=== PATIENT | male | born 1970 | race Caucasian/White ===

== ENCOUNTER 2016-10-02 14:13 | Inpatient (IN) | payer OTHER ==
[2016-10-02 15:04] VITALS: BMI 24.0
--- NOTE | 2016-10-02 17:10 | HP ---
COWS - Scale Resting Pulse: 1= [place] 81-100 Sweatin= Chills/Flushing Restless Observation: 1= Difficult to Sit Still Pupil Size: 0= Normal to Room Light Bone or Joint Aches: 2= Severe Diffuse Aches Runny Nose/ Eye Tearin= Runny Nose/Eyes GI Upset > 30mins: 2= Nausea/Diarrhea Tremor Observation: 2= Slight Tremor Visible Yawning Observation: 1= 1-2x During Session Anxiety or Irritability: 2=Irritable/Anxious Goose Flesh Skin: 0=Smooth Skin COWS Score: 14 CIWA Score - CIWA Score Nausea/Vomitin-Mild Nausea/No Vomiting Muscle Tremors: 4-Moderate,w/Arms Extend Anxiety: 4-Mod. Anxious/Guarded Agitation: 4-Moderately Restless Paroxysmal Sweats: 1-Minimal Palms Moist Orientation: 1-Uncertain about Date Tacttile Disturbances: 0-None Auditory Disturbances: 0-None Visual Disturbances: 0-None Headache: 0-None Present CIWA-Ar Total Score: 15 Admission ROS S - HPI Chief Complaint: WITHDRAWAL SX Allergies/Adverse Reactions: Allergies Allergy/AdvReac Type Severity Reaction Status Date / Time No Known Allergies Allergy Verified 10/02/16 17:04 History of Present Illness: 46 YEARS OLD MALE WITH LONG HISTORY OF OPIATE NICOTINE DEPENDENCE, HYPERTENSION HIV DENIES MENTAL ILLNESS IS ADMITTED TO DETOX Exam Limitations: No Limitations - Ebola screening Have you traveled outside of the country in the last 21 days: No Have you had contact with anyone from an Ebola affected area: No Have you been sick,other than usual withdrawal symptoms: No Do you have a fever: No - Review of Systems Constitutional: Chills, Changes in sleep, Unintentional Wgt. Loss EENT: reports: No Symptoms Reported Respiratory: reports: Cough Cardiac: reports: Palpitations GI: reports: Diarrhea, Nausea, Poor Appetite, Poor Fluid Intake, Indigestion, Abdominal cramping : reports: No Symptoms Reported Musculoskeletal: reports: Back Pain, Joint Pain, Muscle Pain, Neck Pain Integumentary: reports: Change in Color (RIGHT FOR ARM IV OPIATE) Neuro: reports: Tremors Endocrine: reports: No Symptoms Reported Hematology: reports: No Symptoms Reported Psychiatric: reports: Judgement Intact, Mood/Affect Appropiate Other Systems: Reviewed and Negative Patient History - Patient Medical History Hx Anemia: No Hx Asthma: No Hx Chronic Obstructive Pulmonary Disease (COPD): No Hx Cancer: No Hx Cardiac Disorders: No Hx Congestive Heart Failure: No Hx Hypertension: Yes (non-compliant) Hx Hypercholesterolemia: No Hx Pacemaker: No HX Cerebrovascular Accident: No Hx Seizures: No Hx Dementia: No Hx Diabetes: No Hx Gastrointestinal Disorders: Yes (GERD-NEXIUM) Hx Liver Disease: Yes (hep c) Hx Genitourinary Disorders: No Hx Sexually Transmitted Disorders: No Hx Renal Disease (ESRD): No Hx Thyroid Disease: No Hx Human Immunodeficiency Virus (HIV): Yes (1991, [place]uv[place], prezista,and complera , the [facility] [address] [facility], norvir) Hx Hepatitis C: Yes (NOT TREATED YET) Hx Depression: No Hx Suicide Attempt: No Hx Bipolar Disorder: No Hx Schizophrenia: No - Patient Surgical History Past Surgical History: Yes Hx Neurologic Surgery: No Hx Cataract Extraction: No Hx Cardiac Surgery: No Hx Lung Surgery: No Hx Breast Surgery: No Hx Breast Biopsy: No Hx Abdominal Surgery: No Hx Appendectomy: No Hx Cholecystectomy: Yes (2012; in [facility]) Hx Genitourinary Surgery: No Hx Orthopedic Surgery: No Anesthesia Reaction: No - PPD History Previous Implant?: Yes Documented Results: Negative w/proof Implanted On Prior R Admission?: Yes Date: 09/17/15 Results: 0 MM PPD to be Administered?: Yes - Smoking Cessation Smoking history: Current every day smoker Have you smoked in the past 12 months: Yes Aproximately how many cigarettes per day: 10 Cigars Per Day: 0 Hx Chewing Tobacco Use: No Initiated information on smoking cessation: Yes 'Breaking Loose' booklet given: 10/02/16 - Substance & Tx. History Hx Alcohol Use: Yes Hx Substance Use: Yes Substance Use Type: Alcohol, Cocaine, Marijuana, Opiates, Tranquilizers Hx Substance Use Treatment: Yes - Substances Abused Alcohol Route: Oral Frequency: Daily Amount used: Vodka 1/2 pint Age of first use: 19 Date of Last Use: 10/01/16 Cocaine Route: Injection Frequency: Daily Amount used: $40-50 Age of first use: 28 Date of Last Use: 10/01/16 Heroin Route: Injection Frequency: Daily Amount used: 10 bags Age of first use: 28 Date of Last Use: 10/01/16 Alprazolam (Xanax) Route: Oral Frequency: Daily Amount used: 4 MG Age of first use: 37 Date of Last Use: 10/01/16 Family Disease History - Family Disease History Family Disease History: Diabetes: Father (CA. OF THE LUNGS AND ), Heart Disease: Grandparent (HTN), CA: Father, Other: Father, Mother (; breast CA) Admission Physical Exam [facility] - Vital Signs Vital Signs: Vital Signs - 24 hr 10/02/16 15:03 Temperature 97.6 F Pulse Rate 98 H Respiratory 18 Rate Blood Pressure 147/87 - Physical General Appearance: Yes: Appropriately Dressed, Mild Distress, Thin, Tremorous, Irritable, Sweating, Anxious HEENTM: Yes: Hearing grossly Normal, Normal ENT Inspection, Normocephalic, Normal Voice Respiratory: Yes: Chest Non-Tender, Lungs Clear, Normal Breath Sounds, No Respiratory Distress, No Accessory Muscle Use Neck: Yes: Supple, Trachea in good position Breast: Yes: Breasts Symetrical Cardiology: Yes: Regular Rhythm, Regular Rate, S1, S2 Abdominal: Yes: Non Tender, Soft, Increased Bowel Sounds Genitourinary: Yes: Within Normal Limits Back: Yes: Normal Inspection Musculoskeletal: Yes: full range of Motion, Gait Steady, Back pain, Muscle Pain Extremities: Yes: Normal Range of Motion, Non-Tender, Tremors Neurological: Yes: Alert, Motor Strength 5/5, Normal Mood/Affect, Normal Response Integumentary: Yes: Warm, Track Snow Lymphatic: Yes: Within Normal Limits - Diagnostic (1) Alcohol dependence with uncomplicated withdrawal Current Visit: Yes Status: Acute (2) Essential hypertension Current Visit: Yes Status: Acute (3) Gastroesophageal reflux disease Current Visit: Yes Status: Acute (4) Hepatitis C, chronic Current Visit: Yes Status: Chronic Qualifiers: Hepatic coma status: without hepatic coma Qualified Code(s): B18.2 - Chronic viral hepatitis C (5) Human immunodeficiency virus infection Current Visit: Yes Status: Chronic Comment: PATIENT HAS NOT BRING IN HIS OWN MEDICATION (6) Neuropathy Current Visit: Yes Status: Acute Comment: HIV NEUROPATHY - CANE - NEURONTIN (7) Nicotine dependence Current Visit: Yes Status: Acute Qualifiers: Nicotine product type: cigarettes Substance use status: in withdrawal Qualified Code(s): F17.213 - Nicotine dependence, cigarettes, with withdrawal (8) Opioid dependence with withdrawal Current Visit: Yes Status: Acute (9) Weight loss Current Visit: Yes Status: Acute (10) Skin abrasion Current Visit: Yes Status: Acute Cleared for Admission [facility] - Detox or Rehab [facility] Level of Care: Medically Managed Detox Regimen/Protocol: Methadone/Valium [facility] Breath Alcohol Content Breath Alcohol Content: 0 Urine Drug Screen - Results Drug Screen Negative: No Urine Drug Screen Results: THC-Marijuana, [place]ST[place]-Cocaine, OPI-Opiates, MET- Methamphetamine, MDMA-Ecstasy, BZO-Benzodiazepines, MTD-Methadone, OXY-Oxycodone
[2016-10-02] MEDS ORDERED: MAGNESIUM CITRATE 300 ML BOTTLE PO PRN (17:11)
[2016-10-02] MEDS ORDERED: LOPERAMIDE HCL 2 MG CAPSULE PO PRN (17:11)
[2016-10-02] MEDS ORDERED: MAG HYDROX/AL HYDROX/SIMETH 30 ML UNIT-DOSE CUP PO PRN (17:11)
[2016-10-02] MEDS ORDERED: IBUPROFEN 400 MG TABLET (FP) PO PRN (17:11)
[2016-10-02] MEDS ORDERED: NICOTINE POLACRILEX 2 MG GUM BUC PRN (17:11)
[2016-10-02] MEDS ORDERED: ACETAMINOPHEN 325 MG TABLET (FP) PO PRN (17:11)
[2016-10-02] MEDS ORDERED: P-EPHED 60MG/TRIPROLIDI 2.5MG TABLET PO PRN (17:11)
[2016-10-02] MEDS ORDERED: MAGNESIUM HYDROX 2400MG/30ML ORAL SUSPENSION 30 ML CUP PO PRN (17:11)
[2016-10-02] MEDS ORDERED: diazePAM 5 MG TABLET PO ONE (18:30)
[2016-10-02] MEDS ORDERED: METHADONE HCL 10 MG TABLET (FOR DETOX USE ONLY) PO ONE ×2 (18:30→23:00)
[2016-10-02] MEDS ORDERED: diphenhydrAMINE HCL 50 MG CAPSULE PO PRN (22:00)
[2016-10-02] MEDS ORDERED: cloNIDine HCL 0.1 MG TABLET PO ONE (22:09)
[2016-10-02 22:52] LABS: URINE APPEARANCE SLCLOUDY; URINE BILIRUBIN NEGATIVE (NEGATIVE); URINE BLOOD NEGATIVE (NEGATIVE); URINE COLOR DKYELLOW; URINE GLUCOSE (UA) NEGATIVE (NEGATIVE); URINE KETONE NEGATIVE (NEGATIVE); URINE LEUK ESTERASE NEGATIVE (NEGATIVE); URINE NITRITE NEGATIVE (NEGATIVE); URINE UROBILINOGEN NEGATIVE E.U./dl (0.2-1.0)
[2016-10-02] MEDS: GABAPENTIN 400 MG CAPSULE (FP) PO SCH (22:52)
[2016-10-02] MEDS: RANITIDINE HCL 150 MG TABLET (FP) PO SCH (22:52)
[2016-10-02] MEDS: diazePAM 5 MG TABLET PO SCH (22:53)
[2016-10-02] MEDS: THIAMINE HCL 100 MG TABLET (FP) PO SCH (22:53)
[2016-10-02 22:57] LABS: URINE PROTEIN 2+ (NEGATIVE)
[2016-10-02 23:02] LABS: URINE HYALINE CAST 20 /lpf; URINE MUCUS MANY; URINE RBC 16 /hpf (0-3); URINE WBC 5 /hpf (3-5)
[2016-10-03] MEDS: diazePAM 5 MG TABLET PO SCH ×3 (05:17→22:45)
[2016-10-03] MEDS ORDERED: METHADONE HCL 10 MG TABLET (FOR DETOX USE ONLY) PO SCH (10:00)
[2016-10-03 10:49] LABS: MCH 30.1 pg (25.7-33.7); MCHC 32.5 g/dl (32.0-35.9); MEAN CELL VOLUME 92.5 fl (80-96); MEAN PLT VOLUME 11.3 fl (7.5-11.1); PLATELET COUNT 128 K/MM3 (134-434); RDW 16.2 % (11.9-15.9); WHITE BLOOD COUNT 4.8 K/mm3 (4.0-10.0)
[2016-10-03 10:52] LABS: ALBUMIN 3.7 g/dl (3.4-5.0); ANION GAP 7 (8-16); BILIRUBIN,TOTAL 0.3 mg/dL (0.2-1.0); CALCIUM 9.3 mg/dL (8.5-10.1); CO2 28 mmol/L (21-32); CREATININE 1.1 mg/dL (0.7-1.3); GLUCOSE,RANDOM 86 mg/dL (74-106); SGOT/AST 49 U/L (15-37); SGPT/ALT 90 U/L (12-78); TOT PROT 7.6 g/dl (6.4-8.2)
[2016-10-03 10:53] LABS: ALK PHOS 136 U/L (45-117)
[2016-10-03] MEDS: SULFAMETHOXAZOLE/TRIMETHOPRIM 800MG/160MG D.S. TABLET PO SCH (10:57)
[2016-10-03] MEDS: amLODIPine BESYLATE 10 MG TABLET (FP) PO SCH (10:57)
[2016-10-03] MEDS: PRENATAL VITAMINS W/ FOLIC ACID TABLET (FP) PO SCH (10:57)
[2016-10-03] MEDS: GABAPENTIN 400 MG CAPSULE (FP) PO SCH ×2 (10:57→22:45)
[2016-10-03] MEDS: BACITRACIN 0.9 GM PACKET TP SCH (10:57)
[2016-10-03] MEDS: RANITIDINE HCL 150 MG TABLET (FP) PO SCH ×2 (10:57→22:45)
[2016-10-03] MEDS: NICOTINE 14 MG/24 HOURS TOPICAL PATCH TD SCH (10:58)
[2016-10-03] MEDS: diazePAM 5 MG TABLET PO PRN (11:02)
--- NOTE | 2016-10-03 12:08 | PN ---
S CIWA - CIWA Score Nausea/Vomitin Muscle Tremors: 4-Moderate,w/Arms Extend Anxiety: 4-Mod. Anxious/Guarded Agitation: 4-Moderately Restless Paroxysmal Sweats: 3 Orientation: 0-Oriented Tacttile Disturbances: 1-Very Mild Itch/Numbness Auditory Disturbances: 0-None Visual Disturbances: 0-None Headache: 0-None Present CIWA-Ar Total Score: 19 BHS COWS - Scale Resting Pulse: 1= [place] 81-100 Sweatin= Chills/Flushing Restless Observation: 1= Difficult to Sit Still Pupil Size: 1= Pupils >than Normal Bone or Joint Aches: 1= Mild Discomfort Runny Nose/ Eye Tearin= Nasal Congestion GI Upset > 30mins: 2= Nausea/Diarrhea Tremor Observation of Outstretched Hands: 1= Tremor Beauty, Not Seen Yawning Observation: 2= >3x During Session Anxiety or Irritability: 2=Irritable/Anxious Goose Flesh Skin: 3=Piloerection COWS Score: 16 S Progress Note (SOAP) Subjective: nausea, sweats, interrupted sleep, anxiety, tremors Objective: 10/03/16 12:07 Vital Signs - 24 hr 10/02/16 10/02/16 10/02/16 15:03 18:20 23:26 Temperature 97.6 F 98.7 F 98.3 F Pulse Rate 98 H 94 H 98 H Respiratory 18 18 18 Rate Blood Pressure 147/87 159/97 179/103 10/03/16 10/03/16 10/03/16 00:30 03:30 06:47 Temperature 96.1 F L Pulse Rate 68 Respiratory 18 18 18 Rate Blood Pressure 150/96 10/03/16 11:32 Temperature 95.9 F L Pulse Rate 87 Respiratory 18 Rate Blood Pressure 132/84 Laboratory Tests 10/02/16 10/03/16 10/03/16 21:57 06:00 06:00 WBC 4.8 RBC 4.50 Hgb 13.5 Hct 41.6 MCV 92.5 MCHC 32.5 RDW 16.2 H Plt Count 128 L MPV 11.3 H D Sodium 144 Potassium 4.5 Chloride 109 H Carbon Dioxide 28 Anion Gap 7 L BUN 24 H D Creatinine 1.1 Creat Clearance w eGFR > 60 Random Glucose 86 Calcium 9.3 Total Bilirubin 0.3 D AST 49 H D ALT 90 H D Alkaline Phosphatase 136 H Total Protein 7.6 Albumin 3.7 Urine Color Dkyellow Urine Appearance Slcloudy Urine pH 5.0 Ur Specific [place] 1.028 Urine Protein 2+ H Urine Glucose (UA) Negative Urine Ketones Negative Urine Blood Negative Urine Nitrite Negative Urine Bilirubin Negative Urine Urobilinogen Negative Ur Leukocyte Esterase Negative Urine RBC 16 Urine WBC 5 Ur Epithelial Cells Rare Hyaline Casts 20 Urine Mucus Many Assessment: 10/03/16 12:07 withdrawal sx Plan: cont detox, fluids, encourage ambulation
[2016-10-03] MEDS: EMTRICITABINE 200MG/TENOFOVIR 300MG PO SCH (15:36)
[2016-10-03] MEDS: RITONAVIR 100 MG TABLET PO SCH (15:36)
[2016-10-03] MEDS: DARUNAVIR ETHANOLATE 800 MG TAB PO SCH (15:36)
[2016-10-03] MEDS: PATIENT'S OWN MEDICATION (NON-FORMULARY) (Dolutegravir Sodium 50 MG) PO SCH (16:21)
--- NOTE | 2016-10-03 18:43 | EKG ---
Test Reason : Blood Pressure : / mmHG Vent. Rate : 091 BPM Atrial Rate : 091 BPM P-R Int : 136 ms QRS Dur : 080 ms QT Int : 374 ms P-R-T Axes : 040 -24 019 degrees QTc Int : 460 ms POOR DATA QUALITY, INTERPRETATION MAY BE ADVERSELY AFFECTED NORMAL SINUS RHYTHM NONSPECIFIC ST AND T WAVE ABNORMALITY BORDERLINE ECG POOR DATA QUALITY IN CURRENT ECG PRECLUDES SERIAL COMPARISON Confirmed by GIL CROUCH, ANSHUL ([id number]) on 10/03/2016 6:43:32 PM Referred By: Confirmed By:ANSHUL CORDERO MD
[2016-10-03] MEDS: THIAMINE HCL 100 MG TABLET (FP) PO SCH (22:45)
[2016-10-03] MEDS: guaiFENesin/D-METHORPHAN HB 10 ML UNIT-DOSE CUPS PO PRN (23:52)
[2016-10-04] MEDS: MENTHOL/PHENOL 1 EACH UD MM PRN ×2 (03:10→16:21)
[2016-10-04] MEDS: diazePAM 5 MG TABLET PO PRN (05:10)
[2016-10-04] MEDS ORDERED: METHADONE HCL 5 MG TABLET (FOR DETOX USE ONLY) PO SCH (10:00)
[2016-10-04] MEDS: amLODIPine BESYLATE 10 MG TABLET (FP) PO SCH (10:48)
[2016-10-04] MEDS: BACITRACIN 0.9 GM PACKET TP SCH (10:48)
[2016-10-04] MEDS: RANITIDINE HCL 150 MG TABLET (FP) PO SCH ×2 (10:48→23:36)
[2016-10-04] MEDS: PRENATAL VITAMINS W/ FOLIC ACID TABLET (FP) PO SCH (10:48)
[2016-10-04] MEDS: diazePAM 5 MG TABLET PO SCH ×2 (10:48→22:02)
[2016-10-04] MEDS: DARUNAVIR ETHANOLATE 800 MG TAB PO SCH (10:48)
[2016-10-04] MEDS: GABAPENTIN 400 MG CAPSULE (FP) PO SCH ×2 (10:48→22:02)
[2016-10-04] MEDS: EMTRICITABINE 200MG/TENOFOVIR 300MG PO SCH (10:48)
[2016-10-04] MEDS: guaiFENesin/D-METHORPHAN HB 10 ML UNIT-DOSE CUPS PO PRN ×2 (10:49→23:24)
[2016-10-04] MEDS: RITONAVIR 100 MG TABLET PO SCH (10:49)
[2016-10-04] MEDS: NICOTINE 14 MG/24 HOURS TOPICAL PATCH TD SCH (10:52)
[2016-10-04] MEDS ORDERED: ZOLPIDEM TARTRATE 5 MG TABLET PO PRN (10:59)
[2016-10-04] MEDS: PATIENT'S OWN MEDICATION (NON-FORMULARY) (Dolutegravir Sodium 50 MG) PO SCH (11:17)
[2016-10-04] MEDS: SULFAMETHOXAZOLE/TRIMETHOPRIM 800MG/160MG D.S. TABLET PO SCH (11:17)
--- NOTE | 2016-10-04 16:01 | PN ---
S CIWA - CIWA Score Nausea/Vomitin-Mild Nausea/No Vomiting Muscle Tremors: 4-Moderate,w/Arms Extend Anxiety: 4-Mod. Anxious/Guarded Agitation: 3 Paroxysmal Sweats: No Perspiration Orientation: 0-Oriented Tacttile Disturbances: 0-None Auditory Disturbances: 0-None Visual Disturbances: 0-None Headache: 2-Mild CIWA-Ar Total Score: 14 BHS COWS - Scale Resting Pulse: 0= ID 80 or Below Sweatin=Flushed/Facial Moisture Restless Observation: 3= Extraneous Movement Pupil Size: 0= Normal to Room Light Bone or Joint Aches: 2= Severe Diffuse Aches Runny Nose/ Eye Tearin= Runny Nose/Eyes GI Upset > 30mins: 1= Stomach Cramp Tremor Observation of Outstretched Hands: 2= Slight Tremor Visible Yawning Observation: 0= None Anxiety or Irritability: 2=Irritable/Anxious Goose Flesh Skin: 0=Smooth Skin COWS Score: 14 S Progress Note (SOAP) Subjective: Anxious, tremor, sweat, interrupted sleep (requesting ambien for sleep stating he takes it at home; benadryl ineffective); C/O cough (stated he was seen by provider yesterday and cough syrup prescribed) Objective: 10/04/16 15:59 Last Vital Signs Temp Pulse Resp BP Pulse Ox 96.1 F L 81 18 121/73 10/04/16 14:21 10/04/16 14:21 10/04/16 14:21 10/04/16 14:21 Laboratory Tests 10/02/16 10/03/16 10/03/16 21:57 06:00 06:00 WBC 4.8 RBC 4.50 Hgb 13.5 Hct 41.6 MCV 92.5 MCHC 32.5 RDW 16.2 H Plt Count 128 L MPV 11.3 H D Sodium 144 Potassium 4.5 Chloride 109 H Carbon Dioxide 28 Anion Gap 7 L BUN 24 H D Creatinine 1.1 Creat Clearance w eGFR > 60 Random Glucose 86 Calcium 9.3 Total Bilirubin 0.3 D AST 49 H D ALT 90 H D Alkaline Phosphatase 136 H Total Protein 7.6 Albumin 3.7 Urine Color Dkyellow Urine Appearance Slcloudy Urine pH 5.0 Ur Specific [place] 1.028 Urine Protein 2+ H Urine Glucose (UA) Negative Urine Ketones Negative Urine Blood Negative Urine Nitrite Negative Urine Bilirubin Negative Urine Urobilinogen Negative Ur Leukocyte Esterase Negative Urine RBC 16 Urine WBC 5 Ur Epithelial Cells Rare Hyaline Casts 20 Urine Mucus Many RPR Titer 10/03/16 06:00 WBC RBC Hgb Hct MCV MCHC RDW Plt Count MPV Sodium Potassium Chloride Carbon Dioxide Anion Gap BUN Creatinine Creat Clearance w eGFR Random Glucose Calcium Total Bilirubin AST ALT Alkaline Phosphatase Total Protein Albumin Urine Color Urine Appearance Urine pH Ur Specific [place] Urine Protein Urine Glucose (UA) Urine Ketones Urine Blood Urine Nitrite Urine Bilirubin Urine Urobilinogen Ur Leukocyte Esterase Urine RBC Urine WBC Ur Epithelial Cells Hyaline Casts Urine Mucus RPR Titer Nonreactive Labs noted: Abnormal UA Assessment: 10/04/16 16:00 Withdrawal symptoms Noted with abnormal UA c/o Cough Plan: Continue detox Abnormal UA: encouraged to drink more water, repeat UA Cough: obtain chest xray in AM due to HIV status, continue cough syrup and encouraged to drink lots of water
[2016-10-04] MEDS: THIAMINE HCL 100 MG TABLET (FP) PO SCH (22:01)
[2016-10-05] MEDS: MENTHOL/PHENOL 1 EACH UD MM PRN (00:06)
[2016-10-05] MEDS: diazePAM 5 MG TABLET PO PRN (05:42)
[2016-10-05 06:35] VITALS: BP 129/84; PULSE 68; TEMP 96.7
--- NOTE | 2016-10-05 09:54 | DS ---
[facility] Detox Discharge Summary Admission Date: 10/02/16 Discharge Date: 10/05/16 - History Present History: Alcohol Dependence, Cannabis Dependence, Cocaine Dependence, Opioid Dependence, Sedative Dependence Additional Comments: PT DECLINED TO CONTINUE WITH DETOX. PT ALSO REFUSE TO TALK TO THIS [employer] WHEN TRYING TO MAKE ROUNDS ON PT THIS MORNING. PT DECLINE TO STATE REASON FOR LEAVING BUT SAID "I JUST WANNA LEAVE". PT TO F/U WITH PMD FOR MANAGEMENT OF HIS COMORBID CONDITIONS PT SIGNED OUT AMA Pertinent Past History: HTN HIV+ GERD THROMBOCYTOPENIA HEP C NEUROPATHY - Physical Exam Results Vital Signs: Vital Signs Temperature 96.7 F L 10/05/16 06:34 Pulse Rate 68 10/05/16 06:34 Respiratory Rate 18 10/05/16 06:34 Blood Pressure 129/84 10/05/16 06:34 O2 Sat by Pulse Oximetry (%) Pertinent Admission Physical Exam Findings: WITHDRAWAL SX Laboratory Last Values WBC 4.8 K/mm3 (4.0-10.0) 10/03/16 06:00 RBC 4.50 M/mm3 (4.00-5.60) 10/03/16 06:00 Hgb 13.5 GM/dL (11.7-16.9) 10/03/16 06:00 Hct 41.6 % (35.4-49) 10/03/16 06:00 MCV 92.5 fl (80-96) 10/03/16 06:00 MCHC 32.5 g/dl (32.0-35.9) 10/03/16 06:00 RDW 16.2 % (11.9-15.9) H 10/03/16 06:00 Plt Count 128 K/MM3 (134-434) L 10/03/16 06:00 MPV 11.3 fl (7.5-11.1) H D 10/03/16 06:00 Sodium 144 mmol/L (136-145) 10/03/16 06:00 Potassium 4.5 mmol/L (3.5-5.1) 10/03/16 06:00 Chloride 109 mmol/L (98-107) H 10/03/16 06:00 Carbon Dioxide 28 mmol/L (21-32) 10/03/16 06:00 Anion Gap 7 (8-16) L 10/03/16 06:00 BUN 24 mg/dL (7-18) H D 10/03/16 06:00 Creatinine 1.1 mg/dL (0.7-1.3) 10/03/16 06:00 Creat Clearance w eGFR > 60 (>60) 10/03/16 06:00 Random Glucose 86 mg/dL (74-106) 10/03/16 06:00 Calcium 9.3 mg/dL (8.5-10.1) 10/03/16 06:00 Total Bilirubin 0.3 mg/dL (0.2-1.0) D 10/03/16 06:00 AST 49 U/L (15-37) H D 10/03/16 06:00 ALT 90 U/L (12-78) H D 10/03/16 06:00 Alkaline Phosphatase 136 U/L (45-117) H 10/03/16 06:00 Total Protein 7.6 g/dl (6.4-8.2) 10/03/16 06:00 Albumin 3.7 g/dl (3.4-5.0) 10/03/16 06:00 Urine Color Dkyellow 10/02/16 21:57 Urine Appearance Slcloudy 10/02/16 21:57 Urine pH 5.0 (5.0-8.0) 10/02/16 21:57 Ur Specific [place] 1.028 (1.001-1.035) 10/02/16 21:57 Urine Protein 2+ (NEGATIVE) H 10/02/16 21:57 Urine Glucose (UA) Negative (NEGATIVE) 10/02/16 21:57 Urine Ketones Negative (NEGATIVE) 10/02/16 21:57 Urine Blood Negative (NEGATIVE) 10/02/16 21:57 Urine Nitrite Negative (NEGATIVE) 10/02/16 21:57 Urine Bilirubin Negative (NEGATIVE) 10/02/16 21:57 Urine Urobilinogen Negative E.U./dl (0.2-1.0) 10/02/16 21:57 Ur Leukocyte Esterase Negative (NEGATIVE) 10/02/16 21:57 Urine RBC 16 /hpf (0-3) 10/02/16 21:57 Urine WBC 5 /hpf (3-5) 10/02/16 21:57 Ur Epithelial Cells Rare /hpf (FEW) 10/02/16 21:57 Hyaline Casts 20 /lpf 10/02/16 21:57 Urine Mucus Many 10/02/16 21:57 RPR Titer Nonreactive (NONREACTIVE) 10/03/16 06:00 PT'S PLAT MUCH IMPROVED FROM PREVIOUS ADMISSIONS. - Treatment Hospital Course: Discharged Condition Good - Medication Discharge Medications: Ambulatory Orders Darunavir Ethanolate [Prezista] 800 mg PO DAILY #30 tablet 05/26/15 Emtricitabine/Tenofovir [Truvada -] 1 tab PO DAILY #30 tablet 05/26/15 Ritonavir [Norvir] 100 mg PO DAILY #30 tablet 05/26/15 Sulfamethoxazole/Trimethoprim [Bactrim DS -] 1 tab PO DAILY 01/08/16 Amlodipine Besylate [Norvasc -] 10 mg PO DAILY 04/21/16 Multivitamin [Poly-Vitamin] 1 each PO DAILY 04/21/16 Gabapentin [Neurontin -] 400 mg PO BID #60 capsule 07/09/16 Dolutegravir Sodium [Tivicay] 50 mg PO DAILY 08/22/16 - Diagnosis (1) Alcohol dependence with uncomplicated withdrawal Status: Acute (2) Essential hypertension Status: Chronic (3) Gastroesophageal reflux disease Status: Chronic (4) Neuropathy Status: Chronic (5) Nicotine dependence Status: Chronic Qualifiers: Nicotine product type: cigarettes Substance use status: in withdrawal Qualified Code(s): F17.213 - Nicotine dependence, cigarettes, with withdrawal (6) Opioid dependence with withdrawal Status: Acute (7) Human immunodeficiency virus infection Status: Chronic (8) Severe thrombocytopenia Status: Chronic (9) Weight loss Status: Acute (10) Hepatitis C, chronic Status: Chronic Qualifiers: Hepatic coma status: without hepatic coma Qualified Code(s): B18.2 - Chronic viral hepatitis C (11) Cannabis dependence Status: Acute (12) Drug-induced mood disorder Status: Acute (13) Cocaine dependence Status: Acute Qualifiers: Substance use status: uncomplicated Qualified Code(s): F14.20 - Cocaine dependence, uncomplicated (14) Sedative, hypnotic or anxiolytic dependence with withdrawal, uncomplicated Status: Acute - AMA Did Patient Leave Against Medical Advice: Yes (AMA)
[2016-10-06] MEDS ORDERED: METHADONE HCL 10 MG TABLET (FOR DETOX USE ONLY) PO SCH (10:00)
[2016-10-06] MEDS ORDERED: diazePAM 5 MG TABLET PO SCH (10:00)
[2016-10-07] MEDS ORDERED: METHADONE HCL 5 MG TABLET (FOR DETOX USE ONLY) PO SCH (06:00)
== END 2016-10-05 09:16 | disposition left against medical advice (07) | DRG 770 ==
LOC: YASAS 14:13 → Y3N 17:36
PROVIDERS: ADMIT Internal Medicine; ATTEND Internal Medicine
PROC: HZ2ZZZZ Detoxification Services for Substance Abuse Treatment (ICD-10-PCS; principal; 2016-10-05)
DX: F11.23 Opioid dependence with withdrawal (principal); F13.230 Sedative, hypnotic or anxiolytic dependence with withdrawal, uncomplicated; F10.230 Alcohol dependence with withdrawal, uncomplicated; F14.20 Cocaine dependence, uncomplicated; F17.213 Nicotine dependence, cigarettes, with withdrawal; F19.24 Other psychoactive substance dependence with psychoactive substance-induced mood disorder; B18.2 Chronic viral hepatitis C; Z21 Asymptomatic human immunodeficiency virus [HIV] infection status; I10 Essential (primary) hypertension; G62.9 Polyneuropathy, unspecified; D69.6 Thrombocytopenia, unspecified; K21.9 Gastro-esophageal reflux disease without esophagitis; R63.1 Polydipsia; Z68.24 Body mass index [BMI] 24.0-24.9, adult
CPT/HCPCS: 36415; 80053; 81003; 81015; 85027; 86593; 93005; 93010

== ENCOUNTER 2017-06-19 09:32 | Inpatient (IN) | payer OTHER ==
[2017-06-19 09:54] VITALS: BMI 25.7
--- NOTE | 2017-06-19 11:40 | HP ---
COWS - Scale Resting Pulse: 1= NE 81-100 Sweatin= Chills/Flushing Restless Observation: 1= Difficult to Sit Still Pupil Size: 0= Normal to Room Light Bone or Joint Aches: 1= Mild Discomfort Runny Nose/ Eye Tearin= Nasal Congestion GI Upset > 30mins: 1= Stomach Cramp Tremor Observation: 1= Tremor [place], Not Seen Yawning Observation: 1= 1-2x During Session Anxiety or Irritability: 1=Feels Anxious/Irritable Goose Flesh Skin: 0=Smooth Skin COWS Score: 9 CIWA Score - CIWA Score Nausea/Vomitin-Mild Nausea/No Vomiting Muscle Tremors: 4-Moderate,w/Arms Extend Anxiety: 4-Mod. Anxious/Guarded Agitation: 1-Slight > Activity Paroxysmal Sweats: 1-Minimal Palms Moist Orientation: 1-Uncertain about Date Tacttile Disturbances: 1-Very Mild Itch/Numbness Auditory Disturbances: 1-Very Mild Visual Disturbances: 1-Very Mild Sensitivity Headache: 1-Very Mild CIWA-Ar Total Score: 16 Admission ROS S - HPI Chief Complaint: I want detox - I can't stop on my own Allergies/Adverse Reactions: Allergies Allergy/AdvReac Type Severity Reaction Status Date / Time No Known Allergies Allergy Verified 10/02/16 17:04 History of Present Illness: 46yo gentleman here for detox from opiates and alcohol - last in detox sep 2016. No seizures. History of HIV and hepatitis C. Exam Limitations: Clinical Condition - Ebola screening Have you traveled outside of the country in the last 21 days: No Have you had contact with anyone from an Ebola affected area: No Have you been sick,other than usual withdrawal symptoms: No Do you have a fever: No - Review of Systems Constitutional: Loss of Appetite, Malaise, Changes in sleep, Unintentional Wgt. Loss EENT: reports: Nose Congestion Respiratory: reports: No Symptoms reported Cardiac: reports: No Symptoms Reported GI: reports: Nausea, Poor Appetite : reports: Frequency Musculoskeletal: reports: Back Pain, Muscle Pain Integumentary: reports: No Symptoms Reported Neuro: reports: Numbness Endocrine: reports: No Symptoms Reported Hematology: reports: No Symptoms Reported Psychiatric: reports: Judgement Intact, Mood/Affect Appropiate, Anxious Other Systems: Reviewed and Negative Patient History - Patient Medical History Hx Anemia: No Hx Asthma: No Hx Chronic Obstructive Pulmonary Disease (COPD): No Hx Cancer: No Hx Cardiac Disorders: No Hx Congestive Heart Failure: No Hx Hypertension: Yes Hx Hypercholesterolemia: No Hx Pacemaker: No HX Cerebrovascular Accident: No Hx Seizures: No Hx Dementia: No Hx Diabetes: No Hx Gastrointestinal Disorders: Yes (GERD) Hx Liver Disease: Yes (hep c) Hx Genitourinary Disorders: No Hx Sexually Transmitted Disorders: No Hx Renal Disease (ESRD): No Hx Thyroid Disease: No Hx Human Immunodeficiency Virus (HIV): Yes (t 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, with neuropathy) Hx Hepatitis C: Yes (NOT TREATED YET) Hx Depression: No Hx Suicide Attempt: No Hx Bipolar Disorder: No Hx Schizophrenia: No - Patient Surgical History Past Surgical History: Yes Hx Neurologic Surgery: No Hx Cataract Extraction: No Hx Cardiac Surgery: No Hx Lung Surgery: No Hx Breast Surgery: No Hx Breast Biopsy: No Hx Abdominal Surgery: No Hx Appendectomy: No Hx Cholecystectomy: Yes (2012; in [facility]) Hx Genitourinary Surgery: No Hx Section: No Hx Orthopedic Surgery: No Anesthesia Reaction: No - PPD History Previous Implant?: Yes Documented Results: Negative w/proof Date: 10/04/16 Results: 0 MM PPD to be Administered?: No - Reproductive History Patient is a Female of Child Bearing Age (11 -55 yrs old): No (male) - Smoking Cessation Smoking history: Current every day smoker Have you smoked in the past 12 months: Yes Aproximately how many cigarettes per day: 10 Cigars Per Day: 0 Hx Chewing Tobacco Use: No Initiated information on smoking cessation: Yes 'Breaking Loose' booklet given: 06/19/17 (give on floor) - Substance & Tx. History Hx Alcohol Use: Yes Hx Substance Use: Yes Substance Use Type: Alcohol, Cocaine, Heroin Hx Substance Use Treatment: Yes (detox, rehab, suboxone) - Substances Abused Alcohol Route: Oral Frequency: Daily Amount used: 1/4 pint; six pack 12 oz beer Age of first use: 15 Date of Last Use: 06/19/17 Heroin Route: Injection Frequency: Daily Amount used: 8 bags Age of first use: 26 Date of Last Use: 06/18/17 Non-Rx Methadone Route: Oral Frequency: 1-3 times last 30 days Amount used: 30mg Age of first use: 39 Date of Last Use: 06/16/17 Cocaine Route: Injection Frequency: Daily Amount used: $20 Age of first use: 36 Date of Last Use: 06/18/17 Family Disease History - Family Disease History Family Disease History: Diabetes: Father (CA. OF THE LUNGS AND ), Heart Disease: Grandparent (HTN), CA: Father, Other: Father, Mother (; breast CA), Son (one - living - healthy), Daughter (one - living - healthy) Admission Physical Exam S - Vital Signs Vital Signs: Vital Signs - 24 hr 06/19/17 06/19/17 09:52 11:20 Temperature 98.4 F 98.4 F Pulse Rate 89 89 Respiratory 20 20 Rate Blood Pressure 122/77 122/77 - Physical General Appearance: Yes: Nourished, Appropriately Dressed, Moderate Distress, Anxious HEENTM: Yes: Hearing grossly Normal, Normocephalic, Normal Voice, Pharynx Normal Respiratory: Yes: Normal Breath Sounds, No Respiratory Distress Neck: Yes: No masses,lesions,Nodules, Supple Breast: Yes: Breast Exam Deferred Cardiology: Yes: Regular Rhythm, Regular Rate Abdominal: Yes: Soft Genitourinary: Yes: Within Normal Limits Back: Yes: Normal Inspection Musculoskeletal: Yes: full range of Motion, Gait Steady Extremities: Yes: Normal Inspection, Non-Tender Neurological: Yes: Alert, Normal Mood/Affect, Normal Response, Numbness Integumentary: Yes: Normal Color, Warm, Track Snow (right arm (no erythema)) Lymphatic: Yes: Within Normal Limits - Diagnostic (1) Alcohol dependence with uncomplicated withdrawal Current Visit: Yes Status: Chronic (2) Opioid dependence with withdrawal Current Visit: Yes Status: Chronic (3) Cocaine dependence Current Visit: Yes Status: Chronic Qualifiers: Substance use status: uncomplicated Qualified Code(s): F14.20 - Cocaine dependence, uncomplicated; F14.20 - Cocaine dependence, uncomplicated; F14.20 - Cocaine dependence, uncomplicated (4) Weight loss Current Visit: No Status: Acute (5) Essential hypertension Current Visit: Yes Status: Chronic (6) Gastroesophageal reflux disease Current Visit: Yes Status: Chronic (7) Hepatitis C, chronic Current Visit: Yes Status: Chronic Qualifiers: Hepatic coma status: without hepatic coma Qualified Code(s): B18.2 - Chronic viral hepatitis C; B18.2 - Chronic viral hepatitis C; B18.2 - Chronic viral hepatitis C; B18.2 - Chronic viral hepatitis C (8) Human immunodeficiency virus infection Current Visit: Yes Status: Chronic Comment: PATIENT HAS NOT BRING IN HIS OWN MEDICATION (9) Neuropathy Current Visit: Yes Status: Chronic Comment: HIV NEUROPATHY - CANE - NEURONTIN (10) Nicotine dependence Current Visit: Yes Status: Chronic Qualifiers: Nicotine product type: cigarettes Substance use status: in withdrawal Qualified Code(s): F17.213 - Nicotine dependence, cigarettes, with withdrawal; F17.213 - Nicotine dependence, cigarettes, with withdrawal (11) Thrombocytopenia Current Visit: Yes Status: Acute Cleared for Admission [facility] - Detox or Rehab [facility] Level of Care: Medically Managed Detox Regimen/Protocol: Methadone/Librium [facility] Breath Alcohol Content Breath Alcohol Content: 0 Urine Drug Screen - Results Drug Screen Negative: No Urine Drug Screen Results: CHRISTINAA-Cocaine, OPI-Opiates, BZO-Benzodiazepines, MTD- Methadone
[2017-06-19] MEDS ORDERED: MENTHOL/PHENOL 1 EACH UD MM PRN (11:52)
[2017-06-19] MEDS ORDERED: guaiFENesin/D-METHORPHAN HB 10 ML UNIT-DOSE CUPS PO PRN (11:52)
[2017-06-19] MEDS ORDERED: ACETAMINOPHEN 325 MG TABLET (FP) PO PRN (11:52)
[2017-06-19] MEDS ORDERED: NICOTINE POLACRILEX 4 MG GUM BUC PRN (11:52)
[2017-06-19] MEDS ORDERED: P-EPHED 60MG/TRIPROLIDI 2.5MG TABLET PO PRN (11:52)
[2017-06-19] MEDS ORDERED: MAGNESIUM CITRATE 300 ML BOTTLE PO PRN (11:52)
[2017-06-19] MEDS ORDERED: IBUPROFEN 400 MG TABLET (FP) PO PRN (11:52)
[2017-06-19] MEDS ORDERED: LOPERAMIDE HCL 2 MG CAPSULE PO PRN (11:52)
[2017-06-19] MEDS ORDERED: MAGNESIUM HYDROX 2400MG/30ML ORAL SUSPENSION 30 ML CUP PO PRN (11:52)
[2017-06-19] MEDS ORDERED: hydrOXYzine PAMOATE 25 MG CAPSULE (FP) PO PRN (11:52)
[2017-06-19] MEDS ORDERED: chlordiazePOXIDE HCL 25 MG CAPSULE PO PRN (11:52)
[2017-06-19] MEDS ORDERED: chlordiazePOXIDE HCL 25 MG CAPSULE PO ONE (13:00)
[2017-06-19] MEDS ORDERED: METHADONE HCL 10 MG TABLET (FOR DETOX USE ONLY) PO ONE ×2 (13:00→23:00)
[2017-06-19 15:12] LABS: URINE APPEARANCE SLCLOUDY; URINE BILIRUBIN NEGATIVE (NEGATIVE); URINE BLOOD NEGATIVE (NEGATIVE); URINE COLOR YELLOW; URINE GLUCOSE (UA) NEGATIVE (NEGATIVE); URINE KETONE NEGATIVE (NEGATIVE); URINE NITRITE NEGATIVE (NEGATIVE); URINE UROBILINOGEN NEGATIVE mg/dL (0.2-1.0)
[2017-06-19 15:17] LABS: URINE PROTEIN 1+ (NEGATIVE)
[2017-06-19 15:19] LABS: URINE HYALINE CAST 11 /lpf; URINE MUCUS RARE; URINE RBC 1 /hpf (0-3); URINE WBC 4 /hpf (3-5)
[2017-06-19] MEDS: chlordiazePOXIDE HCL 25 MG CAPSULE PO SCH ×2 (17:23→22:13)
[2017-06-19 17:50] LABS: URINE LEUK ESTERASE Negative (NEGATIVE)
[2017-06-19] MEDS: diphenhydrAMINE HCL 50 MG CAPSULE PO PRN (22:13)
[2017-06-19] MEDS: GABAPENTIN 400 MG CAPSULE (FP) PO SCH (22:13)
[2017-06-19] MEDS: THIAMINE HCL 100 MG TABLET (FP) PO SCH (22:13)
[2017-06-20] MEDS: chlordiazePOXIDE HCL 25 MG CAPSULE PO SCH ×4 (05:37→22:13)
[2017-06-20 09:49] LABS: ALBUMIN 3.1 g/dl (3.4-5.0); ALK PHOS 182 U/L (45-117); ANION GAP 8 (8-16); BILIRUBIN,TOTAL 0.2 mg/dL (0.2-1.0); CALCIUM 7.8 mg/dL (8.5-10.1); CO2 26 mmol/L (21-32); CREATININE 0.9 mg/dL (0.7-1.3); GLUCOSE,RANDOM 103 mg/dL (74-106); SGOT/AST 50 U/L (15-37); SGPT/ALT 111 U/L (12-78); TOT PROT 6.7 g/dl (6.4-8.2)
[2017-06-20] MEDS ORDERED: PATIENT'S OWN MEDICATION (NON-FORMULARY) (Dolutegravir Sodium 50 MG) PO SCH (10:00)
[2017-06-20] MEDS ORDERED: METHADONE HCL 10 MG TABLET (FOR DETOX USE ONLY) PO SCH (10:00)
[2017-06-20 10:01] LABS: MCH 29.3 pg (25.7-33.7); MCHC 32.8 g/dl (32.0-35.9); MEAN CELL VOLUME 89.3 fl (80-96); MEAN PLT VOLUME 10.5 fl (7.5-11.1); PLATELET COUNT 148 K/MM3 (134-434); RDW 14.9 % (11.9-15.9); WHITE BLOOD COUNT 4.4 K/mm3 (4.0-10.0)
[2017-06-20] MEDS: DARUNAVIR ETHANOLATE 800 MG TAB PO SCH (10:10)
[2017-06-20] MEDS: PANTOPRAZOLE 40 MG TABLET (FP) PO SCH (10:10)
[2017-06-20] MEDS: PRENATAL VITAMINS W/ FOLIC ACID TABLET (FP) PO SCH (10:10)
[2017-06-20] MEDS: GABAPENTIN 400 MG CAPSULE (FP) PO SCH ×2 (10:10→22:13)
[2017-06-20] MEDS: RITONAVIR 100 MG TABLET PO SCH (10:11)
[2017-06-20] MEDS: EMTRICITABINE 200MG/TENOFOVIR 300MG PO SCH (10:11)
[2017-06-20] MEDS: amLODIPine BESYLATE 10 MG TABLET (FP) PO SCH (10:11)
--- NOTE | 2017-06-20 11:03 | EKG ---
Test Reason : Blood Pressure : / mmHG Vent. Rate : 071 BPM Atrial Rate : 071 BPM P-R Int : 150 ms QRS Dur : 098 ms QT Int : 414 ms P-R-T Axes : 012 -17 015 degrees QTc Int : 449 ms NORMAL SINUS RHYTHM NORMAL ECG WHEN COMPARED WITH ECG OF 02-OCT-2016 18:25, NO SIGNIFICANT CHANGE WAS FOUND Confirmed by FRANKI FLORES MD ([id number]) on 06/20/2017 11:03:00 AM Referred By: Confirmed By:FRANKI FLORES MD
--- NOTE | 2017-06-20 11:48 | PN ---
S Progress Note Note: Patient was approached in the day room while drawing and he was asked for an inteview. He responded:'I don't need to see a psychiatrist"
--- NOTE | 2017-06-20 14:50 | PN ---
[facility] CIWA - CIWA Score Nausea/Vomitin-No Nausea/No Vomiting Muscle Tremors: 3 Anxiety: 2 Agitation: 3 Paroxysmal Sweats: 3 Orientation: 1-Uncertain about Date Tacttile Disturbances: 1-Very Mild Itch/Numbness Auditory Disturbances: 0-None Visual Disturbances: 0-None Headache: 0-None Present CIWA-Ar Total Score: 13 S COWS - Scale Resting Pulse: 0= [place] 80 or Below Sweatin=Flushed/Facial Moisture Restless Observation: 1= Difficult to Sit Still Pupil Size: 0= Normal to Room Light Bone or Joint Aches: 1= Mild Discomfort Runny Nose/ Eye Tearin= Runny Nose/Eyes GI Upset > 30mins: 1= Stomach Cramp Tremor Observation of Outstretched Hands: 2= Slight Tremor Visible Yawning Observation: 1= 1-2x During Session Anxiety or Irritability: 2=Irritable/Anxious Goose Flesh Skin: 0=Smooth Skin COWS Score: 12 [facility] Progress Note (SOAP) Subjective: Sweating,interrupted sleep,restless,tremors,anxiety Objective: 06/20/17 14:48 Vital Signs - 8 hr 06/20/17 10:00 Temperature 97.4 F L Pulse Rate 72 Respiratory 18 Rate Blood Pressure 121/79 Laboratory Tests 06/19/17 06/20/17 06/20/17 13:50 07:30 07:30 WBC 4.4 RBC 4.39 Hgb 12.9 Hct 39.2 MCV 89.3 MCH 29.3 MCHC 32.8 RDW 14.9 Plt Count 148 MPV 10.5 Sodium 140 Potassium 4.2 Chloride 106 Carbon Dioxide 26 Anion Gap 8 BUN 18 D Creatinine 0.9 Creat Clearance w eGFR > 60 Random Glucose 103 Calcium 7.8 L Total Bilirubin 0.2 D AST 50 H ALT 111 H D Alkaline Phosphatase 182 H D Total Protein 6.7 Albumin 3.1 L Urine Color Yellow Urine Appearance Slcloudy Urine pH 5.0 Ur Specific [place] 1.025 Urine Protein 1+ H Urine Glucose (UA) Negative Urine Ketones Negative Urine Blood Negative Urine Nitrite Negative Urine Bilirubin Negative Urine Urobilinogen Negative Ur Leukocyte Esterase Negative Urine RBC 1 Urine WBC 4 Ur Epithelial Cells Rare Hyaline Casts 11 Urine Mucus Rare RPR Titer 06/20/17 07:30 WBC RBC Hgb Hct MCV MCH MCHC RDW Plt Count MPV Sodium Potassium Chloride Carbon Dioxide Anion Gap BUN Creatinine Creat Clearance w eGFR Random Glucose Calcium Total Bilirubin AST ALT Alkaline Phosphatase Total Protein Albumin Urine Color Urine Appearance Urine pH Ur Specific [place] Urine Protein Urine Glucose (UA) Urine Ketones Urine Blood Urine Nitrite Urine Bilirubin Urine Urobilinogen Ur Leukocyte Esterase Urine RBC Urine WBC Ur Epithelial Cells Hyaline Casts Urine Mucus RPR Titer Nonreactive labs noted Assessment: 06/20/17 14:50 Withdrawal sx. Plan: Continue detox
[2017-06-20] MEDS: diphenhydrAMINE HCL 50 MG CAPSULE PO PRN (22:13)
[2017-06-20] MEDS: THIAMINE HCL 100 MG TABLET (FP) PO SCH (22:13)
[2017-06-21] MEDS: chlordiazePOXIDE HCL 25 MG CAPSULE PO SCH ×2 (05:43→10:17)
--- NOTE | 2017-06-21 09:40 | PN ---
[facility] CIWA - CIWA Score Nausea/Vomitin-No Nausea/No Vomiting Muscle Tremors: 4-Moderate,w/Arms Extend Anxiety: 3 Agitation: 3 Paroxysmal Sweats: 3 Orientation: 0-Oriented Tacttile Disturbances: 0-None Auditory Disturbances: 0-None Visual Disturbances: 0-None Headache: 0-None Present CIWA-Ar Total Score: 13 [facility] COWS - Scale Resting Pulse: 0= [place] 80 or Below Sweatin= Chills/Flushing Restless Observation: 1= Difficult to Sit Still Pupil Size: 0= Normal to Room Light Bone or Joint Aches: 1= Mild Discomfort Runny Nose/ Eye Tearin= Runny Nose/Eyes GI Upset > 30mins: 2= Nausea/Diarrhea Tremor Observation of Outstretched Hands: 2= Slight Tremor Visible Yawning Observation: 0= None Anxiety or Irritability: 2=Irritable/Anxious Goose Flesh Skin: 0=Smooth Skin COWS Score: 11 S Progress Note (SOAP) Subjective: sweats shakes interrupted sleep agitation body aches Objective: 06/21/17 11:05 Vital Signs Temperature 96.6 F L 06/21/17 10:13 Pulse Rate 72 06/21/17 10:13 Respiratory Rate 18 06/21/17 10:13 Blood Pressure 119/78 06/21/17 10:13 O2 Sat by Pulse Oximetry (%) Laboratory Tests 06/19/17 06/20/17 06/20/17 13:50 07:30 07:30 WBC 4.4 RBC 4.39 Hgb 12.9 Hct 39.2 MCV 89.3 MCH 29.3 MCHC 32.8 RDW 14.9 Plt Count 148 MPV 10.5 Sodium 140 Potassium 4.2 Chloride 106 Carbon Dioxide 26 Anion Gap 8 BUN 18 D Creatinine 0.9 Creat Clearance w eGFR > 60 Random Glucose 103 Calcium 7.8 L Total Bilirubin 0.2 D AST 50 H ALT 111 H D Alkaline Phosphatase 182 H D Total Protein 6.7 Albumin 3.1 L Urine Color Yellow Urine Appearance Slcloudy Urine pH 5.0 Ur Specific [place] 1.025 Urine Protein 1+ H Urine Glucose (UA) Negative Urine Ketones Negative Urine Blood Negative Urine Nitrite Negative Urine Bilirubin Negative Urine Urobilinogen Negative Ur Leukocyte Esterase Negative Urine RBC 1 Urine WBC 4 Ur Epithelial Cells Rare Hyaline Casts 11 Urine Mucus Rare RPR Titer 06/20/17 07:30 WBC RBC Hgb Hct MCV MCH MCHC RDW Plt Count MPV Sodium Potassium Chloride Carbon Dioxide Anion Gap BUN Creatinine Creat Clearance w eGFR Random Glucose Calcium Total Bilirubin AST ALT Alkaline Phosphatase Total Protein Albumin Urine Color Urine Appearance Urine pH Ur Specific [place] Urine Protein Urine Glucose (UA) Urine Ketones Urine Blood Urine Nitrite Urine Bilirubin Urine Urobilinogen Ur Leukocyte Esterase Urine RBC Urine WBC Ur Epithelial Cells Hyaline Casts Urine Mucus RPR Titer Nonreactive elevated liver enzymes d/c Tylenol aaox3 ambulating no acute distress Assessment: 06/21/17 11:06 withdrawal sx Plan: continue detox increase fluids
[2017-06-21] MEDS: PRENATAL VITAMINS W/ FOLIC ACID TABLET (FP) PO SCH (10:16)
[2017-06-21] MEDS: PANTOPRAZOLE 40 MG TABLET (FP) PO SCH (10:16)
[2017-06-21] MEDS: METHADONE HCL 5 MG TABLET (FOR DETOX USE ONLY) PO SCH (10:16)
[2017-06-21] MEDS: GABAPENTIN 400 MG CAPSULE (FP) PO SCH ×2 (10:16→22:26)
[2017-06-21] MEDS: DARUNAVIR ETHANOLATE 800 MG TAB PO SCH (10:17)
[2017-06-21] MEDS: amLODIPine BESYLATE 10 MG TABLET (FP) PO SCH (10:17)
[2017-06-21] MEDS: RITONAVIR 100 MG TABLET PO SCH (10:17)
[2017-06-21] MEDS: EMTRICITABINE 200MG/TENOFOVIR 300MG PO SCH (10:18)
[2017-06-21] MEDS: MAG HYDROX/AL HYDROX/SIMETH 30 ML UNIT-DOSE CUP PO PRN (14:50)
[2017-06-21] MEDS ORDERED: BACITRACIN 0.9 GM PACKET TP ONE (15:57)
[2017-06-21] MEDS: chlordiazePOXIDE 5 MG CAPSULE PO SCH ×2 (18:15→22:27)
[2017-06-21] MEDS: BACITRACIN 0.9 GM PACKET TP SCH (22:26)
[2017-06-21] MEDS: THIAMINE HCL 100 MG TABLET (FP) PO SCH (22:27)
[2017-06-21] MEDS: diphenhydrAMINE HCL 50 MG CAPSULE PO PRN (22:29)
[2017-06-22] MEDS: chlordiazePOXIDE 5 MG CAPSULE PO SCH ×2 (05:37→10:16)
--- NOTE | 2017-06-22 10:04 | PN ---
[facility] Progress Note (SOAP) Subjective: appetite getting better sweats interrupted sleep irritable Objective: 06/22/17 10:03 Vital Signs Temperature 98.1 F 06/22/17 06:33 Pulse Rate 75 06/22/17 06:33 Respiratory Rate 18 06/22/17 06:33 Blood Pressure 127/72 06/22/17 06:33 O2 Sat by Pulse Oximetry (%) aaox3 ambulating no acute distress Assessment: 06/22/17 10:04 withdrawal sx Plan: continue detox increase fluids
[2017-06-22] MEDS: METHADONE HCL 5 MG TABLET (FOR DETOX USE ONLY) PO SCH (10:14)
[2017-06-22] MEDS: RITONAVIR 100 MG TABLET PO SCH (10:15)
[2017-06-22] MEDS: PRENATAL VITAMINS W/ FOLIC ACID TABLET (FP) PO SCH (10:15)
[2017-06-22] MEDS: GABAPENTIN 400 MG CAPSULE (FP) PO SCH ×2 (10:15→22:56)
[2017-06-22] MEDS: amLODIPine BESYLATE 10 MG TABLET (FP) PO SCH (10:15)
[2017-06-22] MEDS: EMTRICITABINE 200MG/TENOFOVIR 300MG PO SCH (10:16)
[2017-06-22] MEDS: DARUNAVIR ETHANOLATE 800 MG TAB PO SCH (10:16)
[2017-06-22] MEDS: PANTOPRAZOLE 40 MG TABLET (FP) PO SCH (10:16)
[2017-06-22] MEDS: BACITRACIN 0.9 GM PACKET TP SCH ×2 (13:05→22:57)
[2017-06-22] MEDS: chlordiazePOXIDE HCL 10 MG CAPSULE PO SCH ×2 (18:21→22:56)
[2017-06-22] MEDS: THIAMINE HCL 100 MG TABLET (FP) PO SCH (22:56)
[2017-06-22] MEDS: diphenhydrAMINE HCL 50 MG CAPSULE PO PRN (22:57)
[2017-06-23] MEDS: diphenhydrAMINE HCL 50 MG CAPSULE PO PRN ×2 (02:00→21:53)
[2017-06-23] MEDS: chlordiazePOXIDE HCL 10 MG CAPSULE PO SCH ×2 (06:10→10:15)
[2017-06-23] MEDS ORDERED: METHADONE HCL 10 MG TABLET (FOR DETOX USE ONLY) PO SCH (10:00)
[2017-06-23] MEDS: PRENATAL VITAMINS W/ FOLIC ACID TABLET (FP) PO SCH (10:14)
[2017-06-23] MEDS: DARUNAVIR ETHANOLATE 800 MG TAB PO SCH (10:14)
[2017-06-23] MEDS: GABAPENTIN 400 MG CAPSULE (FP) PO SCH ×2 (10:15→21:53)
[2017-06-23] MEDS: PANTOPRAZOLE 40 MG TABLET (FP) PO SCH (10:15)
[2017-06-23] MEDS: amLODIPine BESYLATE 10 MG TABLET (FP) PO SCH (10:15)
[2017-06-23] MEDS: BACITRACIN 0.9 GM PACKET TP SCH ×2 (10:15→21:53)
[2017-06-23] MEDS: RITONAVIR 100 MG TABLET PO SCH (10:16)
[2017-06-23] MEDS: EMTRICITABINE 200MG/TENOFOVIR 300MG PO SCH (10:19)
--- NOTE | 2017-06-23 11:41 | PN ---
[facility] Progress Note (SOAP) Subjective: agitation sweats interrupted sleep Objective: 06/23/17 11:41 Vital Signs Temperature 98.9 F 06/23/17 10:00 Pulse Rate 75 06/23/17 10:00 Respiratory Rate 20 06/23/17 10:00 Blood Pressure 121/60 06/23/17 10:00 O2 Sat by Pulse Oximetry (%) aaox3 ambulating no acute distress Assessment: 06/23/17 11:41 withdrawal sx Plan: continue detox increase fluids d/c in am
[2017-06-23] MEDS: MAG HYDROX/AL HYDROX/SIMETH 30 ML UNIT-DOSE CUP PO PRN (19:13)
[2017-06-23] MEDS: THIAMINE HCL 100 MG TABLET (FP) PO SCH (21:53)
[2017-06-24] MEDS: MAG HYDROX/AL HYDROX/SIMETH 30 ML UNIT-DOSE CUP PO PRN (01:42)
[2017-06-24] MEDS ORDERED: METHADONE HCL 5 MG TABLET (FOR DETOX USE ONLY) PO SCH (06:00)
[2017-06-24 06:45] VITALS: BP 125/75; PULSE 95; TEMP 97.5
--- NOTE | 2017-06-24 09:17 | DS ---
[facility] Detox Discharge Summary Admission Date: 06/19/17 Discharge Date: 06/24/17 - History Present History: Alcohol Dependence, Cocaine Dependence, Opioid Dependence - Physical Exam Results Vital Signs: Vital Signs Temperature 97.5 F L 06/24/17 06:44 Pulse Rate 95 H 06/24/17 06:44 Respiratory Rate 20 06/24/17 06:44 Blood Pressure 125/75 06/24/17 06:44 O2 Sat by Pulse Oximetry (%) - Treatment Hospital Course: Detox Protocol Followed, Detoxed Safely, Responded well, Discharged Condition Good, Rehab Referral Accepted - Medication Discharge Medications: Ambulatory Orders Darunavir Ethanolate [Prezista] 800 mg PO DAILY #30 tablet 05/26/15 Emtricitabine/Tenofovir [Truvada -] 1 tab PO DAILY #30 tablet 05/26/15 Ritonavir [Norvir] 100 mg PO DAILY #30 tablet 05/26/15 Amlodipine Besylate [Norvasc -] 10 mg PO DAILY 04/21/16 Multivitamin [Poly-Vitamin] 1 each PO DAILY 04/21/16 Gabapentin [Neurontin -] 400 mg PO BID #60 capsule 07/09/16 Dolutegravir Sodium [Tivicay] 50 mg PO DAILY 08/22/16 Pantoprazole Sodium [Protonix -] 40 mg PO DAILY 06/19/17 - Diagnosis (1) Alcohol dependence with uncomplicated withdrawal Current Visit: Yes Status: Chronic (2) Cocaine dependence Current Visit: Yes Status: Chronic Qualifiers: Substance use status: uncomplicated Qualified Code(s): F14.20 - Cocaine dependence, uncomplicated; F14.20 - Cocaine dependence, uncomplicated; F14.20 - Cocaine dependence, uncomplicated (3) Essential hypertension Current Visit: Yes Status: Chronic (4) Gastroesophageal reflux disease Current Visit: Yes Status: Chronic (5) Hepatitis C, chronic Current Visit: Yes Status: Chronic Qualifiers: Hepatic coma status: without hepatic coma Qualified Code(s): B18.2 - Chronic viral hepatitis C; B18.2 - Chronic viral hepatitis C; B18.2 - Chronic viral hepatitis C; B18.2 - Chronic viral hepatitis C (6) Human immunodeficiency virus infection Current Visit: Yes Status: Chronic (7) Neuropathy Current Visit: Yes Status: Chronic (8) Nicotine dependence Current Visit: Yes Status: Chronic Qualifiers: Nicotine product type: cigarettes Substance use status: uncomplicated Qualified Code(s): F17.210 - Nicotine dependence, cigarettes, uncomplicated; F17.210 - Nicotine dependence, cigarettes, uncomplicated (9) Opioid dependence with withdrawal Current Visit: Yes Status: Chronic - AMA Did Patient Leave Against Medical Advice: No
== END 2017-06-24 10:17 | disposition home or self-care (01) | DRG 773 ==
LOC: YASAS 09:32 → Y6N 12:46
PROVIDERS: ADMIT Internal Medicine; ATTEND Internal Medicine
PROC: HZ2ZZZZ Detoxification Services for Substance Abuse Treatment (ICD-10-PCS; principal; 2017-06-19)
DX: F11.23 Opioid dependence with withdrawal (principal); F10.230 Alcohol dependence with withdrawal, uncomplicated; F14.20 Cocaine dependence, uncomplicated; F17.210 Nicotine dependence, cigarettes, uncomplicated; I10 Essential (primary) hypertension; K21.9 Gastro-esophageal reflux disease without esophagitis; B18.2 Chronic viral hepatitis C; Z21 Asymptomatic human immunodeficiency virus [HIV] infection status; G62.9 Polyneuropathy, unspecified; R74.9 Abnormal serum enzyme level, unspecified; Z87.898 Personal history of other specified conditions
CPT/HCPCS: 36415; 80053; 81003; 81015; 85027; 86593; 93005; 93010

== ENCOUNTER 2018-01-03 16:54 | Inpatient (IN) | payer OTHER ==
[2018-01-03 20:05] VITALS: BMI 22.3
--- NOTE | 2018-01-03 21:03 | HP ---
COWS - Scale Resting Pulse: 0= [place] 80 or Below Sweatin=Flushed/Facial Moisture Restless Observation: 1= Difficult to Sit Still Pupil Size: 1= Pupils >than Normal Bone or Joint Aches: 1= Mild Discomfort Runny Nose/ Eye Tearin= Nasal Congestion GI Upset > 30mins: 0= None Tremor Observation: 2= Slight Tremor Visible Yawning Observation: 1= 1-2x During Session Anxiety or Irritability: 2=Irritable/Anxious Goose Flesh Skin: 3=Piloerection COWS Score: 14 CIWA Score - CIWA Score Nausea/Vomitin-No Nausea/No Vomiting Muscle Tremors: 3 Anxiety: 3 Agitation: 2 Paroxysmal Sweats: 2 Orientation: 0-Oriented Tacttile Disturbances: 2-Mild Itch/Numbness/Burn (bilateral lower extremities) Auditory Disturbances: 0-None Visual Disturbances: 0-None Headache: 0-None Present CIWA-Ar Total Score: 12 Admission ROS S - HPI Chief Complaint: "I am here for detox and rehab " Allergies/Adverse Reactions: Allergies Allergy/AdvReac Type Severity Reaction Status Date / Time No Known Allergies Allergy Verified 01/03/18 19:32 History of Present Illness: 47 yo male with hx IV heroin, alcohol and nicotine dependence is here seeking detox. PMHX: positive HIV, Hep C, HTN, neuropathy, GERD, depression. Last detox at [facility] May 2017. Longest period of sobriety 11 months. Denies suicidal / homicidal ideation or suicide attempts. Denies hx of overdose, seizures or blackouts. Exam Limitations: No Limitations - Ebola screening Have you been sick,other than usual withdrawal symptoms: No - Review of Systems Constitutional: Chills, Diaphoresis, Loss of Appetite, Changes in sleep, Weakness, Unintentional Wgt. Loss (10 lbs over the past month) EENT: reports: No Symptoms Reported Respiratory: reports: Cough (x 2 days) Cardiac: reports: No Symptoms Reported GI: reports: No Symptoms Reported : reports: No Symptoms Reported Musculoskeletal: reports: Back Pain Integumentary: reports: No Symptoms Reported Neuro: reports: Numbness (both lower extremities) Endocrine: reports: Increased Thirst Hematology: reports: See HPI Psychiatric: reports: Orientated x3, Depressed Other Systems: Reviewed and Negative Patient History - Patient Medical History Hx Anemia: No Hx Asthma: No Hx Chronic Obstructive Pulmonary Disease (COPD): No Hx Cancer: No Hx Cardiac Disorders: No Hx Congestive Heart Failure: No Hx Hypertension: Yes Hx Hypercholesterolemia: No Hx Pacemaker: No HX Cerebrovascular Accident: No Hx Seizures: No Hx Dementia: No Hx Diabetes: No Hx Gastrointestinal Disorders: Yes (GERD ) Hx Liver Disease: Yes (hep c) Hx Genitourinary Disorders: No Hx Sexually Transmitted Disorders: No Hx Renal Disease (ESRD): No Hx Thyroid Disease: No Hx Human Immunodeficiency Virus (HIV): Yes (t cells 396, with neuropathy) Hx Hepatitis C: Yes (NOT TREATED YET) Hx Depression: No Hx Suicide Attempt: No Hx Bipolar Disorder: No Hx Schizophrenia: No - Patient Surgical History Past Surgical History: Yes Hx Neurologic Surgery: No Hx Cataract Extraction: No Hx Cardiac Surgery: No Hx Lung Surgery: No Hx Breast Surgery: No Hx Breast Biopsy: No Hx Abdominal Surgery: No Hx Appendectomy: No Hx Cholecystectomy: Yes (2012; in [facility]) Hx Genitourinary Surgery: No Hx Section: No Hx Orthopedic Surgery: No Anesthesia Reaction: No - PPD History Previous Implant?: No Documented Results: Negative w/proof Implanted On Prior [facility] Admission?: Yes Date: 10/04/16 Results: 0 MM PPD to be Administered?: Yes - Reproductive History Patient is a Female of Child Bearing Age (11 -55 yrs old): No - Smoking Cessation Smoking history: Current every day smoker Have you smoked in the past 12 months: Yes Aproximately how many cigarettes per day: 10 Cigars Per Day: 0 Hx Chewing Tobacco Use: No Initiated information on smoking cessation: Yes 'Breaking Loose' booklet given: 01/03/18 - Substance & Tx. History Hx Alcohol Use: Yes Hx Substance Use: Yes Substance Use Type: Alcohol Hx Substance Use Treatment: Yes ([facility] [place] 2016) - Substances Abused Alcohol Route: Oral Frequency: Daily Amount used: 1/2 PINT Age of first use: 15 Date of Last Use: 01/02/18 Heroin Route: Injection Frequency: Daily Amount used: 20 BAGS Age of first use: 26 Date of Last Use: 01/03/18 Family Disease History - Family Disease History Family Disease History: Diabetes: Father (CA. OF THE LUNGS AND ), Heart Disease: Grandparent (HTN), CA: Father, Other: Father, Mother (; breast CA), Son (one - living - healthy), Daughter (one - living - healthy) Admission Physical Exam [facility] - Vital Signs Vital Signs: Vital Signs - 24 hr 01/03/18 19:21 Temperature 98.7 F Pulse Rate 64 Respiratory 18 Rate Blood Pressure 160/98 - Physical General Appearance: Yes: Disheveled, Thin, Anxious, Other HEENTM: Yes: EOMI, Hearing grossly Normal, Normal ENT Inspection, Normocephalic , Normal Voice, MARSHA, Pharynx Normal, Tm's normal Respiratory: Yes: Chest Non-Tender, Lungs Clear, Normal Breath Sounds, No Respiratory Distress, No Accessory Muscle Use, Other (cough) Neck: Yes: No masses,lesions,Nodules, Trachea in good position Breast: Yes: Breast Exam Deferred Cardiology: Yes: Regular Rhythm, Regular Rate Abdominal: Yes: Normal Bowel Sounds, Non Tender, Flat, Soft Genitourinary: Yes: Within Normal Limits Back: Yes: Normal Inspection Musculoskeletal: Yes: full range of Motion, Gait Steady, Pelvis Stable Extremities: Yes: Within Normal Limits Neurological: Yes: programmer II-XII NML intact, Fully Oriented, Alert, Motor Strength 5/5 Integumentary: Yes: Normal Color, Warm, Diaphoresis Lymphatic: Yes: Within Normal Limits - Diagnostic (1) Weight loss Current Visit: Yes Status: Acute (2) Alcohol dependence with uncomplicated withdrawal Current Visit: Yes Status: Chronic (3) Cocaine dependence Current Visit: Yes Status: Chronic Qualifiers: Substance use status: uncomplicated Qualified Code(s): F14.20 - Cocaine dependence, uncomplicated (4) Essential hypertension Current Visit: Yes Status: Chronic (5) Gastroesophageal reflux disease Current Visit: Yes Status: Chronic (6) Hepatitis C, chronic Current Visit: Yes Status: Chronic Qualifiers: Hepatic coma status: without hepatic coma Qualified Code(s): B18.2 - Chronic viral hepatitis C (7) Human immunodeficiency virus infection Current Visit: Yes Status: Chronic Comment: Patient jan did not bring his antiviral meds (8) Neuropathy Current Visit: Yes Status: Chronic Comment: HIV NEUROPATHY - NEURONTIN (9) Nicotine dependence Current Visit: Yes Status: Chronic Qualifiers: Nicotine product type: cigarettes Substance use status: uncomplicated Qualified Code(s): F17.210 - Nicotine dependence, cigarettes, uncomplicated (10) Opioid dependence with withdrawal Current Visit: Yes Status: Chronic (11) Elevated blood pressure reading in office with diagnosis of hypertension Current Visit: Yes Status: Acute (12) Cough Current Visit: Yes Status: Acute Cleared for Admission [facility] - Detox or Rehab [facility] Level of Care: Medically Managed Detox Regimen/Protocol: Methadone/Librium [facility] Breath Alcohol Content Breath Alcohol Content: 0 Urine Drug Screen - Results Drug Screen Negative: No Urine Drug Screen Results: THC-Marijuana, CHRISTIANA-Cocaine, OPI-Opiates, BZO- Benzodiazepines
[2018-01-03] MEDS ORDERED: hydrOXYzine PAMOATE 50 MG CAPSULE (FP) PO PRN (21:20)
[2018-01-03] MEDS ORDERED: chlordiazePOXIDE HCL 25 MG CAPSULE PO PRN (21:20)
[2018-01-03] MEDS ORDERED: chlordiazePOXIDE HCL 25 MG CAPSULE PO ONE (21:20)
[2018-01-03] MEDS ORDERED: NICOTINE POLACRILEX 2 MG GUM BC PRN (21:20)
[2018-01-03] MEDS ORDERED: LOPERAMIDE HCL 2 MG CAPSULE PO PRN (21:20)
[2018-01-03] MEDS ORDERED: MAGNESIUM HYDROX 2400MG/30ML ORAL SUSPENSION 30 ML CUP PO PRN (21:20)
[2018-01-03] MEDS ORDERED: MAG HYDROX/AL HYDROX/SIMETH 30 ML UNIT-DOSE CUP PO PRN (21:20)
[2018-01-03] MEDS ORDERED: METHADONE HCL 10 MG TABLET (FOR DETOX USE ONLY) PO ONE ×2 (21:20→23:00)
[2018-01-03] MEDS ORDERED: MAGNESIUM CITRATE 300 ML BOTTLE PO PRN (21:20)
[2018-01-03] MEDS ORDERED: ACETAMINOPHEN 325 MG TABLET (FP) PO PRN (21:20)
[2018-01-03] MEDS ORDERED: MENTHOL/PHENOL 1 EACH UD MM PRN (21:20)
[2018-01-03] MEDS ORDERED: P-EPHED 60MG/TRIPROLIDI 2.5MG TABLET PO PRN (21:20)
[2018-01-03] MEDS ORDERED: guaiFENesin/D-METHORPHAN HB 10 ML UNIT-DOSE CUPS PO PRN (21:20)
[2018-01-03] MEDS ORDERED: IBUPROFEN 400 MG TABLET (FP) PO PRN (21:20)
[2018-01-03] MEDS: amLODIPine BESYLATE 10 MG TABLET (FP) PO SCH (21:54)
[2018-01-03] MEDS: GABAPENTIN 400 MG CAPSULE (FP) PO SCH (21:54)
[2018-01-03] MEDS: THIAMINE HCL 100 MG TABLET (FP) PO SCH (21:54)
[2018-01-03] MEDS ORDERED: MELATONIN 5 MG TABLETS PO PRN (22:00)
[2018-01-03] MEDS: chlordiazePOXIDE HCL 25 MG CAPSULE PO SCH (22:07)
[2018-01-03 23:09] LABS: URINE APPEARANCE CLEAR; URINE BILIRUBIN NEGATIVE (<2.0 mg/dL); URINE COLOR DKYELLOW; URINE GLUCOSE (UA) NEGATIVE (NEGATIVE); URINE KETONE NEGATIVE (NEGATIVE); URINE LEUK ESTERASE NEGATIVE (NEGATIVE); URINE NITRITE NEGATIVE (NEGATIVE); URINE UROBILINOGEN 4.0 E.U/dl mg/dL (0.2-1.0)
[2018-01-03 23:14] LABS: URINE PROTEIN 3+ (NEGATIVE)
[2018-01-03 23:17] LABS: URINE MUCUS RARE
[2018-01-04] MEDS: chlordiazePOXIDE HCL 25 MG CAPSULE PO SCH ×4 (06:19→22:19)
[2018-01-04 09:45] LABS: HEMATOCRIT 44.2 % (35.4-49); HEMOGLOBIN 14.6 GM/dL (11.7-16.9); MCH 30.3 pg (25.7-33.7); MCHC 33.1 g/dl (32.0-35.9); MEAN CELL VOLUME 91.4 fl (80-96); PLATELET COUNT 122 K/MM3 (134-434); RBC 4.83 M/mm3 (4.00-5.60); RDW 15.2 % (11.9-15.9); WHITE BLOOD COUNT 4.4 K/mm3 (4.0-10.0)
--- NOTE | 2018-01-04 09:51 | EKG ---
Test Reason : Blood Pressure : / mmHG Vent. Rate : 058 BPM Atrial Rate : 058 BPM P-R Int : 128 ms QRS Dur : 104 ms QT Int : 426 ms P-R-T Axes : -01 -08 015 degrees QTc Int : 418 ms SINUS BRADYCARDIA OTHERWISE NORMAL ECG WHEN COMPARED WITH ECG OF 19-JUN-2017 13:32, NO SIGNIFICANT CHANGE WAS FOUND Confirmed by MD Earle, Kwan ([id number]) on 01/04/2018 9:51:14 AM Referred By: Marcelino Hinds Confirmed By:Kwan Og MD
[2018-01-04] MEDS ORDERED: METHADONE HCL 10 MG TABLET (FOR DETOX USE ONLY) PO SCH (10:00)
[2018-01-04 10:01] LABS: CHLORIDE 106 mmol/L (98-107); POTASSIUM 3.4 mmol/L (3.5-5.1); SODIUM 141 mmol/L (136-145)
[2018-01-04 10:28] LABS: ALBUMIN 3.4 g/dl (3.4-5.0); ALK PHOS 167 U/L (45-117); ANION GAP 6 (8-16); BILIRUBIN,TOTAL 0.7 mg/dL (0.2-1.0); BLOOD UREA NITROGEN 8 mg/dL (7-18); CALCIUM 8.1 mg/dL (8.5-10.1); CO2 29 mmol/L (21-32); CREATININE 0.8 mg/dL (0.7-1.3); GLUCOSE,RANDOM 94 mg/dL (74-106); SGOT/AST 132 U/L (15-37); SGPT/ALT 107 U/L (12-78); TOT PROT 7.6 g/dl (6.4-8.2)
[2018-01-04] MEDS: GABAPENTIN 400 MG CAPSULE (FP) PO SCH ×2 (10:30→22:19)
[2018-01-04] MEDS: amLODIPine BESYLATE 10 MG TABLET (FP) PO SCH (10:30)
[2018-01-04] MEDS: PRENATAL VITAMINS W/ FOLIC ACID TABLET (FP) PO SCH (10:30)
[2018-01-04] MEDS: NICOTINE 14 MG/24 HOURS TOPICAL PATCH TD SCH (10:30)
--- NOTE | 2018-01-04 15:38 | PN ---
[facility] CIWA - CIWA Score Nausea/Vomitin-No Nausea/No Vomiting Muscle Tremors: 4-Moderate,w/Arms Extend Anxiety: 4-Mod. Anxious/Guarded Agitation: 5 Paroxysmal Sweats: 2 Orientation: 0-Oriented Tacttile Disturbances: 0-None Auditory Disturbances: 0-None Visual Disturbances: 0-None Headache: 0-None Present CIWA-Ar Total Score: 15 S COWS - Scale Resting Pulse: 0= [place] 80 or Below Sweatin= Chills/Flushing Restless Observation: 3= Extraneous Movement Pupil Size: 2= Moderately Dilated Bone or Joint Aches: 1= Mild Discomfort Runny Nose/ Eye Tearin= None GI Upset > 30mins: 0= None Tremor Observation of Outstretched Hands: 2= Slight Tremor Visible Yawning Observation: 1= 1-2x During Session Anxiety or Irritability: 2=Irritable/Anxious Goose Flesh Skin: 0=Smooth Skin COWS Score: 12 S Progress Note (SOAP) Subjective: PT IS VERY AGITATED,ANXIOUS, IRRITABLE AND EXHIBITING ANGER WHEN APPROACHED FOR HIS MEDICAL CARE INTERVENTIONS. PT SEEN ON THE UNIT AMBULATING WITH STEADY GAIT. NURSE AARON REPORTS PT REFUSAL FOR CHEST XRAY ORDERED BY OTHER PROVIDER TO R/O PNEUMONIA(PLEASE SEE NURSE'S NOTES). Objective: 01/04/18 15:38 ALERT O X 3. Vital Signs Temperature 96.8 F L 01/04/18 14:09 Pulse Rate 77 01/04/18 14:09 Respiratory Rate 18 01/04/18 14:09 Blood Pressure 142/88 01/04/18 14:09 O2 Sat by Pulse Oximetry (%) Laboratory Tests 01/03/18 01/04/18 01/04/18 18:17 07:30 07:30 WBC 4.4 RBC 4.83 Hgb 14.6 D Hct 44.2 MCV 91.4 MCH 30.3 MCHC 33.1 RDW 15.2 Plt Count 122 L MPV 10.0 Sodium 141 Potassium 3.4 L Chloride 106 Carbon Dioxide 29 Anion Gap 6 L BUN 8 D Creatinine 0.8 Creat Clearance w eGFR > 60 Random Glucose 94 Calcium 8.1 L Total Bilirubin 0.7 D AST 132 H D ALT 107 H Alkaline Phosphatase 167 H Total Protein 7.6 Albumin 3.4 Urine Color Dkyellow Urine Appearance Clear Urine pH 6.0 Ur Specific [place] 1.028 Urine Protein 3+ H D Urine Glucose (UA) Negative Urine Ketones Negative Urine Blood 1+ H Urine Nitrite Negative Urine Bilirubin Negative Urine Urobilinogen 4.0 e.u/dl Ur Leukocyte Esterase Negative Urine WBC (Auto) 1 Urine RBC (Auto) 13 Urine Mucus Rare RPR Titer 01/04/18 07:30 WBC RBC Hgb Hct MCV MCH MCHC RDW Plt Count MPV Sodium Potassium Chloride Carbon Dioxide Anion Gap BUN Creatinine Creat Clearance w eGFR Random Glucose Calcium Total Bilirubin AST ALT Alkaline Phosphatase Total Protein Albumin Urine Color Urine Appearance Urine pH Ur Specific [place] Urine Protein Urine Glucose (UA) Urine Ketones Urine Blood Urine Nitrite Urine Bilirubin Urine Urobilinogen Ur Leukocyte Esterase Urine WBC (Auto) Urine RBC (Auto) Urine Mucus RPR Titer Nonreactive K+ = 3.4 NOTED Assessment: 01/04/18 15:39 WITHDRAWAL SX Plan: CONTINUE DETOX KDUR 20 MEQ PO DAILY X 3 DAYS.
[2018-01-04] MEDS: POTASSIUM CHLORIDE TABS 20 MEQ TABLET.ER (FP) PO SCH (16:46)
--- NOTE | 2018-01-04 17:27 | CONSULT ---
[facility] Psychiatric Consult - Data Date of interview: 01/04/18 Admission source: [facility] Identifying data: Patient REFUSED psychiatric interview.Nursing staff is informed.
[2018-01-04] MEDS: THIAMINE HCL 100 MG TABLET (FP) PO SCH (22:19)
[2018-01-05] MEDS: chlordiazePOXIDE HCL 25 MG CAPSULE PO SCH ×2 (05:58→10:45)
[2018-01-05] MEDS ORDERED: METHADONE HCL 5 MG TABLET (FOR DETOX USE ONLY) PO SCH (10:00)
[2018-01-05] MEDS: NICOTINE 14 MG/24 HOURS TOPICAL PATCH TD SCH (10:45)
[2018-01-05] MEDS: POTASSIUM CHLORIDE TABS 20 MEQ TABLET.ER (FP) PO SCH (10:45)
[2018-01-05] MEDS: amLODIPine BESYLATE 10 MG TABLET (FP) PO SCH (10:45)
[2018-01-05] MEDS: PRENATAL VITAMINS W/ FOLIC ACID TABLET (FP) PO SCH (10:45)
[2018-01-05] MEDS: GABAPENTIN 400 MG CAPSULE (FP) PO SCH (10:45)
--- NOTE | 2018-01-05 13:09 | PN ---
[facility] CIWA - CIWA Score Nausea/Vomitin-No Nausea/No Vomiting Muscle Tremors: 5 Anxiety: 5 Agitation: 4-Moderately Restless Paroxysmal Sweats: 1-Minimal Palms Moist Orientation: 0-Oriented Tacttile Disturbances: 0-None Auditory Disturbances: 0-None Visual Disturbances: 0-None Headache: 0-None Present CIWA-Ar Total Score: 15 S COWS - Scale Resting Pulse: 0= [place] 80 or Below Sweatin= Chills/Flushing Restless Observation: 3= Extraneous Movement Pupil Size: 2= Moderately Dilated Bone or Joint Aches: 1= Mild Discomfort Runny Nose/ Eye Tearin= None GI Upset > 30mins: 0= None Tremor Observation of Outstretched Hands: 1= Tremor [place], Not Seen Yawning Observation: 1= 1-2x During Session Anxiety or Irritability: 2=Irritable/Anxious Goose Flesh Skin: 0=Smooth Skin COWS Score: 11 [facility] Progress Note (SOAP) Subjective: ANXIETY, RESTLESSNESS, INTERMITTENT SLEEP. Objective: 01/05/18 13:08 Vital Signs Temperature 96.4 F L 01/05/18 09:42 Pulse Rate 63 01/05/18 09:42 Respiratory Rate 16 01/05/18 09:42 Blood Pressure 125/80 01/05/18 09:42 O2 Sat by Pulse Oximetry (%) Laboratory Tests 01/03/18 01/04/18 01/04/18 18:17 07:30 07:30 WBC 4.4 RBC 4.83 Hgb 14.6 D Hct 44.2 MCV 91.4 MCH 30.3 MCHC 33.1 RDW 15.2 Plt Count 122 L MPV 10.0 Sodium 141 Potassium 3.4 L Chloride 106 Carbon Dioxide 29 Anion Gap 6 L BUN 8 D Creatinine 0.8 Creat Clearance w eGFR > 60 Random Glucose 94 Calcium 8.1 L Total Bilirubin 0.7 D AST 132 H D ALT 107 H Alkaline Phosphatase 167 H Total Protein 7.6 Albumin 3.4 Urine Color Dkyellow Urine Appearance Clear Urine pH 6.0 Ur Specific [place] 1.028 Urine Protein 3+ H D Urine Glucose (UA) Negative Urine Ketones Negative Urine Blood 1+ H Urine Nitrite Negative Urine Bilirubin Negative Urine Urobilinogen 4.0 e.u/dl Ur Leukocyte Esterase Negative Urine WBC (Auto) 1 Urine RBC (Auto) 13 Urine Mucus Rare RPR Titer 01/04/18 07:30 WBC RBC Hgb Hct MCV MCH MCHC RDW Plt Count MPV Sodium Potassium Chloride Carbon Dioxide Anion Gap BUN Creatinine Creat Clearance w eGFR Random Glucose Calcium Total Bilirubin AST ALT Alkaline Phosphatase Total Protein Albumin Urine Color Urine Appearance Urine pH Ur Specific [place] Urine Protein Urine Glucose (UA) Urine Ketones Urine Blood Urine Nitrite Urine Bilirubin Urine Urobilinogen Ur Leukocyte Esterase Urine WBC (Auto) Urine RBC (Auto) Urine Mucus RPR Titer Nonreactive REPEAT CMP ON 01/06/18 Assessment: 01/05/18 13:09 WITHDRAWAL SX Plan: CONTINUE DETOX INCREASE PO FLUIDS
[2018-01-05 13:48] VITALS: BP 147/98; PULSE 72; TEMP 96.6
--- NOTE | 2018-01-05 14:31 | DS ---
[facility] Detox Discharge Summary Admission Date: 01/03/18 Discharge Date: 01/05/18 - History Present History: Alcohol Dependence, Opioid Dependence Additional Comments: PT SIGNED OUT AMA STATING FAMILY REASONS THAT "JUST CAME UP". ALERT O X 3. NAD. Pertinent Past History: PLEASE SEE DX BELOW - Physical Exam Results Vital Signs: Vital Signs Temperature 96.6 F L 01/05/18 13:47 Pulse Rate 72 01/05/18 13:47 Respiratory Rate 18 01/05/18 13:47 Blood Pressure 147/98 01/05/18 13:47 O2 Sat by Pulse Oximetry (%) Pertinent Admission Physical Exam Findings: WITHDRAWAL SX Laboratory Tests 01/03/18 01/04/18 01/04/18 18:17 07:30 07:30 WBC 4.4 RBC 4.83 Hgb 14.6 D Hct 44.2 MCV 91.4 MCH 30.3 MCHC 33.1 RDW 15.2 Plt Count 122 L MPV 10.0 Sodium 141 Potassium 3.4 L Chloride 106 Carbon Dioxide 29 Anion Gap 6 L BUN 8 D Creatinine 0.8 Creat Clearance w eGFR > 60 Random Glucose 94 Calcium 8.1 L Total Bilirubin 0.7 D AST 132 H D ALT 107 H Alkaline Phosphatase 167 H Total Protein 7.6 Albumin 3.4 Urine Color Dkyellow Urine Appearance Clear Urine pH 6.0 Ur Specific [place] 1.028 Urine Protein 3+ H D Urine Glucose (UA) Negative Urine Ketones Negative Urine Blood 1+ H Urine Nitrite Negative Urine Bilirubin Negative Urine Urobilinogen 4.0 e.u/dl Ur Leukocyte Esterase Negative Urine WBC (Auto) 1 Urine RBC (Auto) 13 Urine Mucus Rare RPR Titer 01/04/18 07:30 WBC RBC Hgb Hct MCV MCH MCHC RDW Plt Count MPV Sodium Potassium Chloride Carbon Dioxide Anion Gap BUN Creatinine Creat Clearance w eGFR Random Glucose Calcium Total Bilirubin AST ALT Alkaline Phosphatase Total Protein Albumin Urine Color Urine Appearance Urine pH Ur Specific [place] Urine Protein Urine Glucose (UA) Urine Ketones Urine Blood Urine Nitrite Urine Bilirubin Urine Urobilinogen Ur Leukocyte Esterase Urine WBC (Auto) Urine RBC (Auto) Urine Mucus RPR Titer Nonreactive - Treatment Hospital Course: Discharged Condition Good - Medication Discharge Medications: Ambulatory Orders Darunavir Ethanolate [Prezista] 800 mg PO DAILY #30 tablet 05/26/15 Emtricitabine/Tenofovir [Truvada -] 1 tab PO DAILY #30 tablet 05/26/15 Ritonavir [Norvir] 100 mg PO DAILY #30 tablet 05/26/15 Amlodipine Besylate [Norvasc -] 10 mg PO DAILY 04/21/16 Gabapentin [Neurontin -] 400 mg PO BID #60 capsule 07/09/16 Dolutegravir Sodium [Tivicay] 50 mg PO DAILY 08/22/16 - Diagnosis (1) Alcohol dependence with uncomplicated withdrawal Current Visit: Yes Status: Acute (2) Essential hypertension Current Visit: Yes Status: Chronic (3) Gastroesophageal reflux disease Current Visit: Yes Status: Chronic (4) Hepatitis C, chronic Current Visit: Yes Status: Chronic Qualifiers: Hepatic coma status: without hepatic coma Qualified Code(s): B18.2 - Chronic viral hepatitis C (5) Human immunodeficiency virus infection Current Visit: Yes Status: Chronic (6) Neuropathy Current Visit: Yes Status: Chronic (7) Nicotine dependence Current Visit: Yes Status: Acute Qualifiers: Nicotine product type: cigarettes Substance use status: in withdrawal Qualified Code(s): F17.213 - Nicotine dependence, cigarettes, with withdrawal (8) Opioid dependence with withdrawal Current Visit: Yes Status: Acute (9) Hypokalemia Current Visit: Yes Status: Acute - AMA Did Patient Leave Against Medical Advice: Yes (AMA)
[2018-01-05] MEDS ORDERED: chlordiazePOXIDE 5 MG CAPSULE PO SCH (23:00)
[2018-01-06] MEDS ORDERED: METHADONE HCL 10 MG TABLET (FOR DETOX USE ONLY) PO SCH (10:00)
[2018-01-06] MEDS ORDERED: chlordiazePOXIDE HCL 10 MG CAPSULE PO SCH (23:00)
[2018-01-07] MEDS ORDERED: METHADONE HCL 5 MG TABLET (FOR DETOX USE ONLY) PO SCH (06:00)
[2018-01-07] MEDS ORDERED: METHADONE HCL 10 MG TABLET (FOR DETOX USE ONLY) PO SCH (10:00)
[2018-01-08] MEDS ORDERED: METHADONE HCL 5 MG TABLET (FOR DETOX USE ONLY) PO SCH (06:00)
== END 2018-01-05 14:05 | disposition left against medical advice (07) | DRG 770 ==
LOC: YASAS 16:54 → Y3N 21:23
PROVIDERS: ADMIT Internal Medicine; ATTEND Internal Medicine
PROC: HZ2ZZZZ Detoxification Services for Substance Abuse Treatment (ICD-10-PCS; principal; 2018-01-03)
DX: F11.23 Opioid dependence with withdrawal (principal); F10.230 Alcohol dependence with withdrawal, uncomplicated; F17.213 Nicotine dependence, cigarettes, with withdrawal; I10 Essential (primary) hypertension; B18.2 Chronic viral hepatitis C; K21.9 Gastro-esophageal reflux disease without esophagitis; Z21 Asymptomatic human immunodeficiency virus [HIV] infection status; G62.9 Polyneuropathy, unspecified; E87.6 Hypokalemia; R05 Cough; Z87.898 Personal history of other specified conditions
CPT/HCPCS: 36415; 80053; 81003; 81015; 85027; 86593; 93005; 93010